=== PATIENT | female | born 1965 | race Caucasian/White ===

== ENCOUNTER 2025-05-11 08:22 | Emergency (ER) | payer BC, SELFPAY ==
[2025-05-11 08:24] VITALS: BP 146/87
--- NOTE | 2025-05-11 08:56 | ED.GENMED ---
History of Present Illness
<Veronica Sanches MD, Resident - Last Filed: 05/11/25 15:14>
General
Chief Complaint: Back Pain
Source: patient
Exam Limitations: none
Time Seen by Provider: 05/11/25 08:43
History of Present Illness
History of Present Illness:
Patient is a 59-year-old female who presents to the emergency department with back pain that radiates left above the bra line. pain is localized to the left intrascapular region. She has a history of sciatica and does not take any home
medications. 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 She is very physically active but cannot correlate her pain to any exacerbating activities. She does not take any medications at home.
Her pain started on Sunday night as a dull pain. She tried to ignore the pain and hopes that it would improve on its own but unfortunately it steadily worsened over the weekend. Pain hurt when she was coughing. On the morning of 05/11/2025 the
pain became so unbearable that it brought the patient to tears leading to the patient taking 5 Advils and coming to the emergency department. Patient stated that this morning the patient also started to have difficulty breathing and was unsure if
it was due to pain or due to anxiety.
Past History
<Veronica Sanches MD, Resident - Last Filed: 05/11/25 15:14>
Past History
ED Past Medical History: None
ED Past Surgical History: None
Social History
Tobacco: Non-smoker
Alcohol: None
Drug: None
Personal:
Living: with family
Family History
Family History: Diabetes ( One of her daughters has Type 1 Diabetes)
Review of Systems
<Veronica Sanches MD, Resident - Last Filed: 05/11/25 15:14>
Review of Systems
Constitutional: Reports no symptoms
EENT: Reports no symptoms
Respiratory: Reports trouble breathing
Cardiac: Reports no symptoms
: Reports no symptoms
Musculoskeletal: Reports back pain ( left-sided intrascapular pain)
Skin: Reports no symptoms
Neurological: Reports no symptoms
Endocrine: Reports no symptoms
Hematologic/Lymphatic: Reports no symptoms
Psychiatric: Reports no symptoms
Phy Exam
<Veronica Sanches MD, Resident - Last Filed: 05/11/25 15:14>
General Physical Exam
General Presentation: well appearing
General age: appears stated age
General Skin: warm and dry
General Habitus: normal
General Mental: alert
General Hydration: appears well hydrated
Course
<Veronica Sanches MD, Resident - Last Filed: 05/11/25 15:14>
Orders/Labs/Results
Orders:
Orders
05/11/25 08:29
Electrocardiogram (*1) Urgent
Reason for Study: Shortness of Breath
EKG- Treatment ONCE
05/11/25 08:52
CR Chest - 2 Views Urgent
Comment:
Reason For Exam: cp sob
05/11/25 09:26
Complete Blood Count/With Diff Urgent
Comprehensive Metabolic Panel Urgent
NT-proBNP Urgent
Troponin I Urgent
05/11/25 09:49
Ketorolac [Toradol] 15 mg IV NOW STA
Abnormal Lab Results
05/11/25
09:26
WBC 3.8 L 10^3/uL
(4.8-10.8)
Glucose 100 H mg/dl
(70-99)
05/11/25 09:26
05/11/25 09:26
Vital Signs
Initial and Last Documented VS:
Initial Vital Signs
Temp Pulse Resp BP Pulse Ox
97.9 F 76 18 146/87 98
05/11/25 08:24 05/11/25 08:24 05/11/25 08:24 05/11/25 08:24 05/11/25 08:24
Last Documented Vital Signs
Temp Pulse Resp BP Pulse Ox
98.6 F 72 20 131/85 99
05/11/25 12:05 05/11/25 12:05 05/11/25 12:05 05/11/25 12:05 05/11/25 12:05
<Blayne Aren Bond, DO - Last Filed: 05/11/25 11:55>
Orders/Labs/Results
Orders:
Orders
05/11/25 08:29
Electrocardiogram (*1) Urgent
Reason for Study: Shortness of Breath
EKG- Treatment ONCE
05/11/25 08:52
CR Chest - 2 Views Urgent
Comment:
Reason For Exam: cp sob
05/11/25 09:26
Complete Blood Count/With Diff Urgent
Comprehensive Metabolic Panel Urgent
NT-proBNP Urgent
Troponin I Urgent
05/11/25 09:49
Ketorolac [Toradol] 15 mg IV NOW STA
Abnormal Lab Results
05/11/25
09:26
WBC 3.8 L 10^3/uL
(4.8-10.8)
Glucose 100 H mg/dl
(70-99)
05/11/25 09:26
05/11/25 09:26
Vital Signs
Initial and Last Documented VS:
Initial Vital Signs
Temp Pulse Resp BP Pulse Ox
97.9 F 76 18 146/87 98
05/11/25 08:24 05/11/25 08:24 05/11/25 08:24 05/11/25 08:24 05/11/25 08:24
Last Documented Vital Signs
Temp Pulse Resp BP Pulse Ox
98.6 F 72 20 131/85 99
05/11/25 12:05 05/11/25 12:05 05/11/25 12:05 05/11/25 12:05 05/11/25 12:05
<Veronica Sanches MD, Resident - Last Filed: 05/11/25 15:14>
*Pulse Oximetry
SaO2: 98
Oxygen Mode of Delivery: Room air
Patient hypoxic: no
*Critical Care Note
Total Time (30-74mins, 75-104mins- exclusive of procedures): 60
ED Attending Note
<Veronica Sanches MD, Resident - Last Filed: 05/11/25 15:14>
ED Attending Note
ED Attending Note:
Problem list:
Back pain
Plan:
CBC, BMP ordered
troponins ordered
proBNP ordered
chest x-ray ordered
Differentials:
Costochondritis
Back musculoskeletal pain
Cardiac ischemia
Heart failure
Radiology:
chest x-ray ordered on 05/11/2025 showed no radiographic evidence of acute cardiopulmonary abnormality
EKG:
EKG ordered on 05/11/2025 was unremarkable
Labs:
WBCs 3.8, proBNP 61.2, troponin 0.012
Update:
chest x-ray unremarkable
proBNP and troponins within normal limits
I reassessed the patient at about 11:45 AM. The patient is now tearful but overall states that the back pain has improved after Toradol. As she does appear rather uncomfortable, we did not initially give IV narcotic analgesia as she did not have a
ride. She states later that she would be able to have a ride but ultimately decided to just be discharged a prescription for narcotic. I did send this to her [facility] on [address]. I also offered and considered CTA to evaluate for PE however the
patient declined and just wanted to go home.
I evaluated the patient at bedside. She does appear uncomfortable and position changes do affect her left periscapular pain.
-
Portions of this chart may have been created with voice recognition software.� Occasional wrong word or��sound alike� substitutions may have occurred due to the inherent limitations of voice recognition software.
<Blayne Younger Ronda, DO - Last Filed: 05/11/25 11:55>
ED Attending Note
ED Attending Note:
Problem list:
Back pain
Plan:
CBC, BMP ordered
troponins ordered
proBNP ordered
chest x-ray ordered
Differentials:
Costochondritis
Back musculoskeletal pain
Cardiac ischemia
Heart failure
Radiology:
chest x-ray ordered on 05/11/2025 showed no radiographic evidence of acute cardiopulmonary abnormality
EKG:
EKG ordered on 05/11/2025 was unremarkable
Labs:
WBCs 3.8, proBNP 61.2, troponin 0.012
Update:
chest x-ray unremarkable
proBNP and troponins within normal limits
I reassessed the patient at about 11:45 AM. The patient is now tearful but overall states that the back pain has improved after Toradol. As she does appear rather uncomfortable, we did not initially give IV narcotic analgesia as she did not have a
ride. She states later that she would be able to have a ride but ultimately decided to just be discharged a prescription for narcotic. I [facility]. I also offered and considered CTA to evaluate for PE however the
patient declined and just wanted to go home.
I evaluated the patient at bedside. She does appear uncomfortable and position changes do affect her left periscapular pain.
Discharge Plan
Departure
Patient Disposition: Home (Routine Discharge)
Date of Disposition: 05/11/25
Time of Disposition: 11:47
Patient with high blood pressure during this ER visit?: Yes
Discharge Problem:
Acute upper back pain
Instructions: Upper Back Pain (DC), BLOOD PRESSURE
Prescriptions:
New
oxycodone-acetaminophen [Percocet] 5-325 mg tablet
1 - 2 tab PO Q8H PRN (Reason: Pain) Qty: 14 0RF
No Action
ondansetron HCl 4 MG tablet
4 mg PO Q8HPRN PRN (Reason: nausea)
metronidazole 500 MG tablet
500 mg PO Q8 Qty: 30 0RF
levofloxacin 500 MG tablet
500 mg PO DAILY Qty: 10 0RF
ondansetron HCl 4 MG tablet
4 mg PO Q8HPRN PRN (Reason: nausea) Qty: 30 0RF
trepkhymq-mptmsv-wpxvrnrc-scop 10 ML elixir
10 ml PO QID PRN (Reason: abdominal cramps) Qty: 60 0RF
Referrals:
Alice Anaya PA-C [Family Provider, Family Practice]
Activity Restrictions/Additional Instructions:
Your basic blood work is normal. There is no sign of heart attack or heart failure based on lab test. The chest x-ray is clear. You still may have a musculoskeletal etiology of your pain such as a strain or spasm of the periscapular musculature
which can occur without any significant trauma or injury. I recommend 3-4 [id number]-[id number] ibuprofen (Motrin) every 8 hours with food for a few days. Return here if worse. For more severe pain, I am sending a prescription for Percocet to your
pharmacy. If you take the Percocet, I recommend taking on the like MiraLAX to prevent constipation.
Interventions
Interventions:
*Risk Screen - Suicide Last Done: 05/11/25 08:24
*General Assessment Last Done: 05/11/25 10:11
*Neglect/Abuse Screening Last Done: 05/11/25 08:24
*ED- Fall Risk Assessment Last Done: 05/11/25 10:11
*ED COVID-19 Vaccine History Last Done: 05/11/25 10:11
*Nursing Disposition Last Done: 05/11/25 12:05
ED-Musculoskeletal Assessment Last Done: 05/11/25 12:05
Discharge Date and Time
Discharge Date/Time: 05/11/25 12:06
Print Language: [email or web address]
[2025-05-11 09:38] LABS: Hematocrit 41.0 % (37.0-47.0); Hemoglobin 13.7 g/dL (12.0-16.0); Mean Corp Hgb Conc. 33.4 g/dL (33.0-37.0); Mean Corpuscular Volume 87.6 fL (81.0-99.0); Nucleated Red Blood Cells % 0 %; Platelet Count 211 10^3/uL (130-400); Red Cell Dist. Width 12.6 % (11.5-14.5)
[2025-05-11 09:52] LABS: ALT (SGPT) 31 U/L (0-35); AST (SGOT) 24 U/L (14-36); Albumin 4.6 g/dl (3.5-5.0); Alkaline Phosphatase 72 U/L (38-126); Blood Urea Nitrogen 17 mg/dl (7-17); Calcium 9.5 mg/dl (8.4-10.2); Carbon Dioxide 24 mmol/L (22-30); Chloride 107 mmol/L (98-107); Glucose 100 mg/dl (70-99); Potassium 4.6 mmol/L (3.5-5.1); Sodium 137 mmol/L (135-145); Total Protein 7.5 g/dl (6.3-8.2); eGFR > 60.00
[2025-05-11] MEDS: TORADOL 15 MG IV (09:58)
[2025-05-11 10:03] LABS: Troponin I < 0.012 ng/ml
[2025-05-11 10:10] VITALS: BMI 35.6
[2025-05-11 12:05] VITALS: BP 131/85
== END 2025-05-11 12:06 | disposition home or self-care (01) ==
LOC: EMR 08:22
PROVIDERS: EMERGENCY PHYSICIAN Emergency Medicine; FAMILY PHYSICIAN Physician Assistant Medical
DX: M54.6 Pain in thoracic spine (principal)
CPT/HCPCS: 96374; 99285; 71046; 80053; 83880; 84484; 85025; 93005

== ENCOUNTER → 2025-07-01 14:06 | Outpatient (REF) | payer BC, SELFPAY | LOC: WDC 14:06 | PROVIDERS: ATTENDING PHYSICIAN Obstetrics & Gynecology Gynecology | DX: Z12.39 Encounter for other screening for malignant neoplasm of breast (principal); Z12.31 Encounter for screening mammogram for malignant neoplasm of breast | CPT/HCPCS: 77063; 77067 ==